=== PATIENT | male | born 1985 | race Caucasian/White ===

== ENCOUNTER 2019-05-11 07:14 | Emergency (ER) | payer SELFPAY ==
--- NOTE | 2019-05-11 07:48 | EDM.PDOC ---
ED HPI GENERAL MEDICAL PROBLEM - General Chief Complaint: Chest Pain Stated Complaint: RIGHT RIB PAIN Time Seen by Provider: 05/11/19 07:38 Source of Information: Reports: Patient History Limitations: Reports: No Limitations - History of Present Illness INITIAL COMMENTS - FREE TEXT/NARRATIVE: The patient presents with right anterior chest pain. This has been going on for about a week. The patient was doing some heavy yard work and felt sharp pain. He says the pain is made worse by breathing and movement and pushing on the areal. He has no shortness of breath with it. He has no fever, chills, cough, congestion, runny nose, abdominal pain, nausea or vomiting. He has no history of heart problems. He does smoke. Onset: Sudden Duration: Week(s): Location: Reports: Chest Quality: Reports: Sharp Severity: Moderate Improves with: Reports: Immobilization Worsens with: Reports: Breathing, Movement Context: Reports: Trauma (Heavy lifting) Associated Symptoms: Reports: Chest Pain. Denies: Fever/Chills, Headaches, Nausea/Vomiting, Shortness of Breath Right Anterior Chest Pain Score (Numeric/FACES): 1 - Related Data Allergies Allergy/AdvReac Type Severity Reaction Status Date / Time No Known Allergies Allergy Verified 05/11/19 07:37 Home Meds: Home Meds Hydrocodone/Acetaminophen [Hydrocodon-Acetaminophen 5-325] 1 - 2 each PO Q6HR PRN #6 tablet 05/11/19 [Rx] Naproxen [Naprosyn] 500 mg PO Q12HR #30 tab 05/11/19 [Rx] Past Medical History - Past Health History Medical/Surgical History: Denies Medical/Surgical History Social & Family History - Tobacco Use Smoking Status *Q: Current Every Day Smoker Years of Tobacco use: 6 Packs/Tins Daily: 0.5 - Caffeine Use Caffeine Use: Reports: Coffee, Energy Drinks, Soda, Tea - Recreational Drug Use Recreational Drug Use: No ED ROS GENERAL - Review of Systems Review Of Systems: See Below Constitutional: Reports: No Symptoms HEENT: Reports: No Symptoms Respiratory: Reports: No Symptoms Cardiovascular: Reports: Chest Pain Endocrine: Reports: No Symptoms GI/Abdominal: Reports: No Symptoms : Reports: No Symptoms Musculoskeletal: Reports: No Symptoms ED EXAM, GENERAL - Physical Exam Exam: See Below Exam Limited By: No Limitations General Appearance: Alert, No Apparent Distress Ears: Normal External Exam Nose: Normal Inspection Head: Atraumatic, Normocephalic Neck: Normal Inspection Respiratory/Chest: No Respiratory Distress, Lungs Clear, Normal Breath Sounds Cardiovascular: Regular Rate, Rhythm, No Edema, No Murmur, Other (Pain upon palpation to the right anterior chest) GI/Abdominal: Soft, Non-Tender, No Organomegaly, No Mass Back Exam: Normal Inspection Extremities: Normal Inspection Course - Vital Signs Last Recorded V/S: Last Vital Signs Temp 97.4 F 05/11/19 07:33 Pulse 75 05/11/19 07:33 Resp 13 05/11/19 07:33 BP 131/75 05/11/19 07:33 Pulse Ox 98 05/11/19 07:33 - Orders/Labs/Meds Orders: Active Orders 24 hr Category Date Time Status Ribs 2V w Chest Rt [CR] Stat Exams 05/11/19 07:43 Taken - Re-Assessments/Exams Free Text/Narrative Re-Assessment/Exam: 05/11/19 07:48 I ordered an x-ray of his ribs. 05/11/19 08:11 His rib x-rays look good. I will get him on some naprosyn and discharge him home. Departure - Departure Time of Disposition: 08:15 Disposition: Home, Self-Care 01 Condition: Good Clinical Impression: Right-sided chest wall pain Prescriptions: Hydrocodone/Acetaminophen [Hydrocodon-Acetaminophen 5-325] 1 - 2 each PO Q6HR PRN #6 tablet PRN Reason: Pain Naproxen [Naprosyn] 500 mg PO Q12HR #30 tab Referrals: PCP,None [Primary Care Provider] - Candido Frederick PA-C [Physician [employer]] - 1 Week Forms: ED Department Discharge Additional Instructions: Take the naprosyn every 12 hours as needed for pain. Ice the area that hurts for 15 minutes 3 times per day. Take the hydrocodone as needed for pain if the naprosyn is not working. Do not work or drive when taking the hydrocodone. Follow up with Candido Frederick in our clinic. Please return if you are worse. - My Orders Last 24 Hours: My Active Orders 05/11/19 07:43 Ribs 2V w Chest Rt [CR] Stat - Assessment/Plan Last 24 Hours: My Active Orders 05/11/19 07:43 Ribs 2V w Chest Rt [CR] Stat
--- NOTE | 2019-05-12 11:46 | CR ---
Chest and right ribs: Frontal view of the chest was obtained as well as three views showing the right ribs. No discrete fracture or other right sided rib abnormality is appreciated. Heart size and mediastinum are normal. Lungs are clear. No pneumothorax is seen. Other visualized osseous structures appear within normal limits. Impression: 1. Nothing acute is seen on frontal chest x-ray. No discrete right sided rib abnormality is appreciated. Diagnostic code #2
== END 2019-05-11 08:36 | disposition home or self-care (01) ==
LOC: JD.ED 07:14
DX: R07.89 Other chest pain (principal); F17.210 Nicotine dependence, cigarettes, uncomplicated
CPT/HCPCS: 71101-26-RT; 71101-RT; 99284-25